=== PATIENT | male | born 1990 | race African-American/Black ===

== ENCOUNTER 2019-01-18 12:07 | Emergency (ER) | payer OTHER ==
[2019-01-18 12:30] VITALS: BP 141/82; PULSE 75; TEMP 98.3; BMI 25.0
--- NOTE | 2019-01-18 13:14 | PDOC ---
History of Present Illness - General Chief Complaint: Pain Stated Complaint: GROIN PAIN Time Seen by Provider: 01/18/19 12:58 History Source: Patient Exam Limitations: No Limitations Past History - Travel Traveled outside of the country in the last 30 days: No Close contact w/someone who was outside of country & ill: No - Past Medical History Allergies/Adverse Reactions: Allergies Allergy/AdvReac Type Severity Reaction Status Date / Time No Known Allergies Allergy Verified 01/18/19 12:28 Home Medications: Ambulatory Orders Cephalexin Monohydrate [Keflex -] 500 mg PO BID #14 capsule 01/18/19 Sulfamethoxazole/Trimethoprim [Bactrim Ds -] 1 tab PO BID #14 tablet 01/18/19 COPD: No - Suicide/Smoking/Psychosocial Hx Smoking History: Never smoked Review of Systems - Review of Systems Able to Perform ROS?: Yes Comments:: 01/18/19 13:20 CONSTITUTIONAL: Absent: fever, chills, diaphoresis, generalized weakness, malaise, loss of appetite HEENT: Absent: rhinorrhea, nasal congestion, throat pain, throat swelling, difficulty swallowing, mouth swelling, ear pain, eye pain, visual Changes CARDIOVASCULAR: Absent: chest pain, loss of consciousness, palpitations, irregular heart rate, peripheral edema RESPIRATORY: Absent: cough, shortness of breath, dyspnea with exertion, orthopnea, wheezing, stridor, hemoptysis GASTROINTESTINAL: Absent: abdominal pain, abdominal distension, nausea, vomiting, diarrhea, constipation, melena, hematochezia GENITOURINARY: Absent: dysuria, frequency, urgency, hesitancy, hematuria, flank pain, genital pain MUSCULOSKELETAL: Absent: myalgia, arthralgia, joint swelling SKIN: Present: rash Absent: itching, pallor HEMATOLOGIC/IMMUNOLOGIC: Present: lymphadenopathy Absent: easy bleeding, easy bruising, frequent infections ENDOCRINE: Absent: unexplained weight gain, unexplained weight loss, heat intolerance, cold intolerance NEUROLOGIC: Absent: headache, focal weakness or paresthesias, dizziness, unsteady gait, seizure, mental status changes, bladder or bowel incontinence PSYCHIATRIC: Absent: anxiety, depression, suicidal or homicidal ideation, hallucinations. Is the patient limited Armenian proficient: No *Physical Exam - Vital Signs Last Vital Signs Temp Pulse Resp BP Pulse Ox 98.3 F 75 20 141/82 100 01/18/19 12:28 01/18/19 12:28 01/18/19 12:28 01/18/19 12:28 01/18/19 12:28 - Physical Exam Comments: 01/18/19 13:22 GENERAL: Well developed, well nourished. Awake and alert. No acute distress. HEENT: Normocephalic, atraumatic. PERRLA, EOMI. No conjunctival pallor. Sclera are non- icteric. Moist mucous membranes. Oropharynx is clear. NECK: Supple. Full ROM. No JVD. Carotid pulses 2+ and symmetric, without bruits. No thyromegaly. No lymphadenopathy. CARDIOVASCULAR: Regular rate and rhythm. No murmurs, rubs, or gallops. Distal pulses are 2+ and symmetric. PULMONARY: No evidence of respiratory distress. Lungs clear to auscultation bilaterally. No wheezing, rales or rhonchi. ABDOMINAL: Soft. Non-tender. Non-distended. No rebound or guarding. No organomegaly. Normoactive bowel sounds. MUSCULOSKELETAL Normal range of motion at all joints. No bony deformities or tenderness. No CVA tenderness. EXTREMITIES: L inguinal lymphadenopathy noted. No cyanosis. No clubbing. No edema. No calf tenderness. SKIN: Cellulitis noted to the L inner thigh near ingrown hair follicle with associated induration. Warm and dry. Normal capillary refill. No rashes. No jaundice. NEUROLOGICAL: Alert, awake, appropriate. Cranial nerves 2-12 intact. No deficits to light touch and temperature in face, upper extremities and lower extremities. No motor deficits in the in face, upper extremities and lower extremities. Normoreflexic in the upper and lower extremities. Normal speech. Toes are down- going bilaterally. Gait is normal without ataxia. PSYCHIATRIC: Cooperative. Good eye contact. Appropriate mood and affect. Medical Decision Making - Medical Decision Making 01/18/19 13:24 The patient is a 29 y/o M who presents to the ER for a bump to his L groin for the past three days. He states he noticed the bumps after he got a pimple to his L inner thigh. He states the bumps are painful. Admits that he shaves in that area .Denies fevers, chills, numbness, tingling, abdominal pain and weakness to the affected extremities. A/P: Lymphadenopathy d/t cellulitis On exam pt with firm round mobile lymph node to the L inguinal area L inner thigh with cellulitis and noted induration Likely reactive LAD d/t cellulitis Will treat with bactrim and keflex at this time DC home with PCP follow up I discussed the physical exam findings, ancillary test results and final diagnoses with the patient. I answered all of the patient's questions. The patient was satisfied with the care received and felt comfortable with the discharge plan and treatment plan. The Patient agrees to follow up with the primary care physician/specialist within 24-72 hours. Return precautions were given. *DC/Admit/Observation/Transfer Diagnosis at time of Disposition: LAD (lymphadenopathy) Cellulitis Qualifiers: Site of cellulitis: extremity Site of cellulitis of extremity: lower extremity Laterality: left Qualified Code(s): L03.116 - Cellulitis of left lower limb - Discharge Dispostion Disposition: HOME Condition at time of disposition: Stable Decision to Admit order: No - Referrals Referrals: Dar Barber MD [Staff Physician] - - Patient Instructions Printed Discharge Instructions: DI for Cellulitis -- Adult, DI for Lymphadenopathy Additional Instructions: You have cellulitis. This is a skin infection. The bumps you are feeling are lymph nodes. They will decrease in size with the antibiotics and warm compresses. Please take the Bactrim and Keflex twice a day for one week. Please take all the antibiotics even if you feel better. You may use warm water soaks to the area. Please do this approximately 4-5 times a day. Please avoid shaving the skin around the area of redness. You may take Tylenol or Motrin as needed for pain. Please follow up with your primary care doctor in 1 week. Return to the emergency department if you have worsening redness, fevers, increasing pain, or have any changes in your symptoms. - Post Discharge Activity Forms/Work/School Notes: Back to Work
== END 2019-01-18 14:12 | disposition home or self-care (01) ==
LOC: JER 12:07
DX: L03.116 Cellulitis of left lower limb (principal); R59.1 Generalized enlarged lymph nodes
CPT/HCPCS: 99281-25

== ENCOUNTER 2022-10-26 18:02 | Emergency (ER) | payer OTHER ==
[2022-10-26 18:10] VITALS: BP 173/113; PULSE 89; RESP 18; TEMP 98.6; BMI 25.6
[2022-10-26] MEDS ORDERED: DEXAMETHASONE SOD PHOSPHATE 10 MG/1 ML VIAL IM ONE (20:01)
[2022-10-26] MEDS ORDERED: KETOROLAC TROMETHAMINE 30 MG/1 ML VIAL IM ONE (20:01)
== END 2022-10-26 20:39 | disposition left against medical advice (07) ==
LOC: JER 18:02
DX: R07.0 Pain in throat (principal); R63.0 Anorexia; J02.9 Acute pharyngitis, unspecified
CPT/HCPCS: 87651; 99283-25